=== PATIENT | female | born 1995 | race African-American/Black ===

== ENCOUNTER 2017-02-10 16:06 | Emergency (ER) | payer MEDICAID ==
[~2017-02-10] VITALS: Ht 167.6 cm; Wt 70.3 kg
[~2017-02-10 16:06] MED LIST: BENADRYL25 M3 PO; CLARITIN-D 241 EACH PO; IBUPROFEN600 MG ORAL
[2017-02-10] MEDS ORDERED: TYLENOL EXTRA500 MG ORAL (17:01)
--- NOTE | 2017-02-10 17:19 | Emergency Room Report ---
History of Present Illness General Chief Complaint: Lower Extremity Injury Source: Patient Present Illness HPI 21-year-old female presents ED complaining of left toe pain and swelling. States that she stubbed her toe yesterday while moving. Notes bruising and swelling to left small toe. Pain is a 9 of 10, throbbing, worse with weight- bearing. Denies any other injuries. No other aggravating or relieving factors. Denies any other associated symptoms Allergies: Coded Allergies: No Known Allergies (Unverified , 01/09/15) Patient History Past Medical History: none Past Surgical History: none Pertinent Family History: none Social History: Denies: alcohol use, drug use, smoking Last Menstrual Period: 1 month Now: No Immunizations: UTD Reviewed Nursing Documentation: PMH: Agreed, PSxH: Agreed Nursing Documentation-PMH Past Medical History: No Stated History Review of Systems All Other Systems: negative except mentioned in HPI Physical Exam Vital Signs Date Time Temp Pulse Resp B/P Pulse Ox O2 Delivery O2 Flow Rate FiO2 02/10/17 16:10 99.0 123 16 118/79 98 Room Air Sp02 EP Interpretation: reviewed, normal General Appearance: no apparent distress, alert, GCS 15, non-toxic Head: normocephalic Eyes: bilateral eye PERRL, bilateral eye normal inspection ENT: normal ENT inspection Neck: normal inspection Respiratory: normal inspection Cardiovascular #1: normal inspection Gastrointestinal: normal inspection Rectal: deferred Genitourinary: no CVA tenderness Musculoskeletal: tender - L small toe. bruising Neurologic: alert, oriented x3, responsive, motor strength/tone normal, sensory intact, speech normal Psychiatric: normal inspection Skin: normal inspection Lymphatic: normal inspection Medical Decision Making Diagnostic Impression: Primary Impression: Toe contusion Qualified Codes: S90.222A - Contusion of left lesser toe(s) with damage to nail, initial encounter ER Course Hospital Course 21-year-old F presents to ED complaining of L toe pain/bruising Differential diagnoses include: Fracture, dislocation, sprain, contusion Clinical course Patient placed on stretcher. After initial history and physical, I ordered pain medications and Xrays of L foot Xrays prelim read shows no acute fracture/dislocation. Discussed findings with the patient. Recommend ice, elevation, avoid tight fitting shoes Diagnosis - toe contusion Stable and discharged to home with prescription for Tylenol. apply ice, keep elevated. weight bear as tolerated. Followup with PMD. Return to ED if symptoms recur or worsen Other X-Ray Diagnostic Results Other X-Ray Diagnostic Results : X-Ray ordered: L foot # of Views/Limited Vs Complete: 3 View Indication: Pain EP Interpretation: Yes Interpretation: no dislocation, no soft tissue swelling, no fractures Impression: No acute disease Interpreting ER Provider: Electronically signed by Tucker Mcgarry MD Last Vital Signs Date Time Temp Pulse Resp B/P Pulse Ox O2 Delivery O2 Flow Rate FiO2 02/10/17 16:10 99.0 123 16 118/79 98 Room Air Status: improved Disposition: HOME, SELF-CARE Condition: Stable Scripts Acetaminophen* (TYLENOL EXTRA STRENGTH*) 500 Mg Tablet 500 MG ORAL Q8H Y for Prn Headache/Temp > 101, #30 TAB 0 Refills Prov: TUCKER MCGARRY M.D. 02/10/17 Patient Instructions: Foot Contusion TUCKER MCGARRY M.D. Feb 10, 2017 17:19
[2017-02-10 17:20] VITALS: BP 118/79
--- NOTE | 2017-02-11 11:50 | Diagnostic Imaging Report ---
Indication: Pain Comparison: None Findings: 3 views of the left foot were obtained. No acute fractures, malalignment, erosions or periostitis are identified. Bone mineralization is within normal limits. Soft tissues are unremarkable. Impression: No acute findings
== END 2017-02-10 17:24 | disposition home or self-care (01) ==
LOC: EMR 16:45
DX: S90.122A Contusion of left lesser toe(s) without damage to nail, initial encounter (principal); W22.8XXA Striking against or struck by other objects, initial encounter; Y92.89 Other specified places as the place of occurrence of the external cause
CPT/HCPCS: 99283

== ENCOUNTER 2017-07-15 01:36 | Emergency (ER) | payer MEDICAID ==
[~2017-07-15] VITALS: Ht 170.2 cm; Wt 67.1 kg
[~2017-07-15 01:36] MED LIST changes: +TYLENOL EXTRA500 MG ORAL
[2017-07-15 01:52] VITALS: BP 123/86
[2017-07-15] MEDS ORDERED: Norco 5mg/325mg tab ORAL ONE (02:00)
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
[2017-07-15] MEDS ORDERED: HYDROCODON-ACE1 EA15 ORAL (03:10)
[2017-07-15] MEDS ORDERED: IBUPROFEN600 MG ORAL (03:10)
[2017-07-15 03:16] VITALS: BP 120/82
[2017-07-15 03:19] VITALS: BP 120/82
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
== END 2017-07-15 03:19 | disposition home or self-care (01) ==
LOC: EMR 02:05
DX: S16.1XXA Strain of muscle, fascia and tendon at neck level, initial encounter (principal); S63.601A Unspecified sprain of right thumb, initial encounter; V43.52XA Car driver injured in collision with other type car in traffic accident, initial encounter; Y92.410 Unspecified street and highway as the place of occurrence of the external cause
CPT/HCPCS: 72040; 99284

== ENCOUNTER 2017-08-26 09:50 | Emergency (ER) | payer MEDICAID, OTHER ==
[~2017-08-26] VITALS: Ht 170.2 cm; Wt 68.0 kg
[~2017-08-26 09:50] MED LIST changes: +HYDROCODON-ACE1 EA15 ORAL
[2017-08-26] MEDS ORDERED: Ketorolac 30mg Inj IV ONE (10:15)
[2017-08-26 10:59] LABS: APPEARANCE,URINE CLEAR; BILIRUBIN, URINE NEGATIVE (NEGATIVE); GLUCOSE, URINE (UA) NEGATIVE (NEGATIVE); KETONES,URINE NEGATIVE (NEGATIVE); LEUKOCYTE ESTERASE ,URINE 2+ (NEGATIVE); NITRITE,URINE NEGATIVE (NEGATIVE); PH,URINE 6 (4.5-8.0); PROTEIN,URINE 1+ (NEGATIVE); UROBILINOGEN,URINE NORMAL MG/DL (0.0-1.0)
[2017-08-26 11:06] LABS: COLOR,URINE YELLOW
[2017-08-26 11:08] LABS: BASOPHILS % (AUTO) 0.6 % (0.0-2.0); EOSINOPHILS % (AUTO) 0.8 % (0.0-3.0); HEMOGLOBIN 13.2 G/DL (12.0-16.0); MEAN CORPUSCULAR VOLUME 97 FL (80-99); MONOCYTES % (AUTO) 11.2 % (1.0-10.0); NEUTROPHILS % (AUTO) 80.4 % (45.0-75.0); PLATELET COUNT 334 K/UL (150-450); RED BLOOD COUNT 4.12 M/UL (4.20-5.40); RED CELL DISTRIBUTION WIDTH 12.2 % (11.6-14.8); WHITE BLOOD COUNT 11.8 K/UL (4.8-10.8)
[2017-08-26 12:35] LABS: ANION GAP 10 mmol/L (5-15); BLOOD UREA NITROGEN 9 mg/dL (7-18); CALCIUM 9.1 MG/DL (8.5-10.1); CARBON DIOXIDE 26 MMOL/L (21-32); CHLORIDE 105 MMOL/L (98-107); CREATININE 0.9 MG/DL (0.55-1.30); POTASSIUM 4.1 MMOL/L (3.5-5.1); SODIUM 140 MMOL/L (136-145)
[2017-08-26 12:49] LABS: ALANINE AMINOTRANSFERASE 28 U/L (12-78); ALBUMIN 3.2 G/DL (3.4-5.0); ALBUMIN/GLOBULIN RATIO 0.6 (1.0-2.7); ALKALINE PHOSPHATASE 64 U/L (46-116); ASPARTATE AMINO TRANSFERASE 25 U/L (15-37); BILIRUBIN,TOTAL 0.2 MG/DL (0.2-1.0)
[2017-08-26 12:56] VITALS: BP 103/66
[2017-08-26] MEDS ORDERED: BACTRIM DS TAB1 EAC1 ORAL (13:58)
[2017-08-26] MEDS ORDERED: IBUPROFEN600 MG ORAL (13:58)
[2017-08-26] MEDS ORDERED: ACETAMINOPHEN-1 EAC1 ORAL (13:58)
--- NOTE | 2017-08-26 14:17 | Diagnostic Imaging Report ---
Indication:Lower abdominal and pelvic pain Technique: Grayscale and duplex Doppler imaging of the pelvis performed utilizing a transabdominal scan and endovaginal scan. Comparison: None Findings: 1.4 cm hypoechoic lesion noted within the left ovary probably hemorrhagic cyst. Some follicles demonstrated. There is good dopplerable blood flow within both ovaries. The uterus demonstrates multiple masses consistent with fibroids ranging in size between 1.5 and 2.5 cm.. Endometrium is 9 to 10 mm in thickness. The uterus measures 7 x 5 x 4 cm. Cervical nabothian cysts are noted. Left ovary 4.5 x 3.7 x 1.6 cm. Right ovary 4.2 x 3.1 x 2.5 cm. IMPRESSION: Multiple uterine fibroids 1.4 cm hemorrhagic cyst suspected in the left ovary. Follow-up recommended in 6 weeks.
--- NOTE | 2017-08-26 14:29 | Diagnostic Imaging Report ---
Indication: Abdominal pain Technique: Continuous helical transaxial imaging of the abdomen and pelvis was obtained from the lung bases to the pubic symphysis during intravenous contrast administration. Coronal 2-D reformats were also obtained. Study obtained in a Siemens sensation [address] Automatic Exposure Control was utilized. Total Dose length Product (DLP): 640.[address] Dose Index Volume (CTDIvol): 11.86 mGy Comparison: None Findings: The lung bases are clear. Solid organs are unremarkable. The gallbladder is unremarkable. There are mildly distended fluid-filled loops of small bowel diffusely throughout the abdomen without definite transition. The findings probably represent enteritis or ileus. Please correlate clinically. The appendix is partially visualized and as such appears normal. There is no abscess or free fluid. The bladder is unremarkable. Uterus noted. No adnexal mass seen. IMPRESSION: Suspected ileus/enteritis. Please correlate clinically. The CT scanner at [facility] is accredited by the [employer] and the scans are performed using dose optimization techniques as appropriate to a performed exam including Automatic Exposure control.
[2017-08-26 14:43] VITALS: BP 115/75
[2017-08-26] MEDS ORDERED: TRIAMCINOLONE A80 G1 TP (14:45)
--- NOTE | 2017-08-27 15:07 | Emergency Room Report ---
History of Present Illness General Chief Complaint: Abdominal Pain Source: Patient Present Illness HPI Patient reports that she was essentially active several days ago she took a day after pill as there was some questionable contact was semen Patient was having some lower abdominal cramping Denies any vomiting or diarrhea Denies any chest pressures of breath Denies any dysuria patient was warned about possible Denies any pelvic pain denies any vaginal discharge Denies any fevers or chills Allergies: Coded Allergies: No Known Allergies (Unverified , 01/09/15) Patient History Past Medical History: see triage record Pertinent Family History: none Last Menstrual Period: 08/17/17 Reviewed Nursing Documentation: PMH: Agreed, PSxH: Agreed Nursing Documentation-PMH Past Medical History: No Stated History Review of Systems All Other Systems: negative except mentioned in HPI Physical Exam Vital Signs Date Time Temp Pulse Resp B/P (MAP) Pulse Ox O2 Delivery O2 Flow Rate FiO2 08/26/17 09:56 97.9 96 22 113/82 99 Room Air Sp02 EP Interpretation: reviewed, normal General Appearance: well appearing, no apparent distress Head: normocephalic, atraumatic Eyes: bilateral eye PERRL, bilateral eye EOMI ENT: hearing grossly normal, normal pharynx, TMs + canals normal, uvula midline Neck: full range of motion, supple, no meningismus, no bony tend Respiratory: lungs clear, normal breath sounds, no rhonchi, no respiratory distress, no retraction, no accessory muscle use Cardiovascular #1: normal peripheral pulses, regular rate, rhythm, no edema, no gallop, no JVD, no murmur Gastrointestinal: normal bowel sounds, non tender, soft, no mass, no organomegaly, non-distended, no guarding, no hernia, no pulsatile mass, no rebound Genitourinary: no CVA tenderness Musculoskeletal: normal inspection Neurologic: oriented x3, responsive, ticket sales supervisor III-XII nml as tested, motor strength/ tone normal, sensory intact Psychiatric: mood/affect normal Skin: normal color, no rash, warm/dry, palpation normal Lymphatic: normal inspection, no adenopathy Medical Decision Making Diagnostic Impression: Primary Impression: abdominal pain Additional Impressions: ovarian cyst uterine fibroids ER Course With the patient's history and examination, multiple differentials considered, including but not limited to , ectopic , ovarian torsion, gastritis, cholecystitis, pancreatitis, appendicitis Patient's ultrasound shows likely hemorrhagic cyst test was negative Consideration for PID is low given the patient's lack of fever or vaginal discharge Patient also shows signs of uterine fibroids And understands the need for close gynecology followup mom is at bedside I did discuss this with her as well Labs Test 08/26/17 10:30 White Blood Count 11.8 K/UL (4.8-10.8) Red Blood Count 4.12 M/UL (4.20-5.40) Hemoglobin 13.2 G/DL (12.0-16.0) Hematocrit 40.0 % (37.0-47.0) Mean Corpuscular Volume 97 FL (80-99) Mean Corpuscular Hemoglobin 32.1 PG (27.0-31.0) Mean Corpuscular Hemoglobin Concent 33.1 G/DL (32.0-36.0) Red Cell Distribution Width 12.2 % (11.6-14.8) Platelet Count 334 K/UL (150-450) Mean Platelet Volume 7.1 FL (6.5-10.1) Neutrophils (%) (Auto) 80.4 % (45.0-75.0) Lymphocytes (%) (Auto) 7.0 % (20.0-45.0) Monocytes (%) (Auto) 11.2 % (1.0-10.0) Eosinophils (%) (Auto) 0.8 % (0.0-3.0) Basophils (%) (Auto) 0.6 % (0.0-2.0) Urine Color Yellow Urine Appearance Clear Urine pH 6 (4.5-8.0) Urine Specific [place] 1.020 (1.005-1.035) Urine Protein 1+ (NEGATIVE) Urine Glucose (UA) Negative (NEGATIVE) Urine Ketones Negative (NEGATIVE) Urine Occult Blood Negative (NEGATIVE) Urine Nitrite Negative (NEGATIVE) Urine Bilirubin Negative (NEGATIVE) Urine Urobilinogen Normal MG/DL (0.0-1.0) Urine Leukocyte Esterase 2+ (NEGATIVE) Urine RBC 0-2 /HPF (0 - 2) Urine WBC 15-20 /HPF (0 - 2) Urine Squamous Epithelial Cells Many /LPF (NONE/OCC) Urine Bacteria Few /HPF (NONE) Sodium Level 140 MMOL/L (136-145) Potassium Level 4.1 MMOL/L (3.5-5.1) Chloride Level 105 MMOL/L (98-107) Carbon Dioxide Level 26 MMOL/L (21-32) Anion Gap 10 mmol/L (5-15) Blood Urea Nitrogen 9 mg/dL (7-18) Creatinine 0.9 MG/DL (0.55-1.30) Estimat Glomerular Filtration Rate > 60 mL/min (>60) Glucose Level 85 MG/DL (74-106) Calcium Level 9.1 MG/DL (8.5-10.1) Total Bilirubin 0.2 MG/DL (0.2-1.0) Aspartate Amino Transf (AST/SGOT) 25 U/L (15-37) Alanine Aminotransferase (ALT/SGPT) 28 U/L (12-78) Alkaline Phosphatase 64 U/L (46-116) Total Protein 8.2 G/DL (6.4-8.2) Albumin 3.2 G/DL (3.4-5.0) Globulin 5.0 g/dL Albumin/Globulin Ratio 0.6 (1.0-2.7) Lipase 129 U/L (73-393) Human Chorionic Gonadotropin, Quant 1 mIU/mL (1-6) CT/MRI/US Diagnostic Results CT/MRI/US Diagnostic Results : Impression pelvic ultrasoundIMPRESSION: Multiple uterine fibroids 1.4 cm hemorrhagic cyst suspected in the left ovary. Follow-up recommended in 6 weeks. abdominal CTIMPRESSION: Suspected ileus/enteritis. Please correlate clinically. Last Vital Signs Date Time Temp Pulse Resp B/P (MAP) Pulse Ox O2 Delivery O2 Flow Rate FiO2 08/26/17 14:43 77 14 115/75 100 Room Air 08/26/17 09:56 97.9 Status: improved Disposition: HOME, SELF-CARE Condition: Improved Scripts Triamcinolone Acetonide (TRIAMCINOLONE ACETONIDE) 80 Gm Oint...g. 80 GM TP BID for 7 Days, GM Prov: CROW PACHECO D.O. 08/26/17 Acetaminophen With Codeine (T#3) (TYLENOL #3 TAB*) Y Tab 1 TAB ORAL Q8H Y for For Pain, #7 TAB Prov: CROW PACHECO D.O. 08/26/17 Trimethoprim/Sulfamethoxazole 160/800* (BACTRIM DS TABLET*) 1 Each Tablet 1 TAB ORAL Q12H, #14 TAB 0 Refills Prov: CROW PACHECO D.O. 08/26/17 Ibuprofen* (MOTRIN*) 600 Mg Tablet 600 MG ORAL Q8H Y for For Pain, #20 TAB 0 Refills Prov: CROW PACHECO D.O. 08/26/17 Referrals: [facility] (PCP) Patient Instructions: Uterine Fibroids, [id number], Ovarian Cyst, Easy-to- Read, Urinary Tract Infection, Cdoa-no-Glmg, Abdominal Pain, Adult Additional Instructions: Patient is provided with the discharge instructions notified to follow up with primary doctor in the next 2-3 days otherwise return to the er with any worsening symptoms. Please note that this report is being documented using [employer]ango technology. This can lead to erroneous entry secondary to incorrect interpretation by the dictating instrument. CROW PACHECO D.O. Aug 27, 2017 15:07
== END 2017-08-26 14:57 | disposition home or self-care (01) ==
LOC: EMR 10:58
DX: R10.9 Unspecified abdominal pain (principal); N83.202 Unspecified ovarian cyst, left side; D25.9 Leiomyoma of uterus, unspecified
CPT/HCPCS: 36415; 74177; 76856; 80053; 81003; 83690; 84702; 85025; 87086; 96374; 99284; J1885; Q9967

== ENCOUNTER 2017-08-31 21:51 | Emergency (ER) | payer OTHER ==
[~2017-08-31] VITALS: Ht 170.2 cm; Wt 68.0 kg
[~2017-08-31 21:51] MED LIST changes: +ACETAMINOPHEN-1 EAC1 ORAL; +BACTRIM DS TAB1 EAC1 ORAL; +TRIAMCINOLONE A80 G1 TP
[2017-08-31 22:11] VITALS: BP 109/69
[2017-08-31] MEDS ORDERED: Ketorolac 30mg Inj IV ONE (22:45)
[2017-08-31 23:06] LABS: BASOPHILS % (AUTO) 0.7 % (0.0-2.0); EOSINOPHILS % (AUTO) 2.7 % (0.0-3.0); HEMATOCRIT 39.4 % (37.0-47.0); HEMOGLOBIN 12.9 G/DL (12.0-16.0); LYMPHOCYTES % (AUTO) 17.8 % (20.0-45.0); MEAN CORPUSCULAR VOLUME 95 FL (80-99); MONOCYTES % (AUTO) 8.8 % (1.0-10.0); PLATELET COUNT 449 K/UL (150-450); RED BLOOD COUNT 4.15 M/UL (4.20-5.40); RED CELL DISTRIBUTION WIDTH 11.8 % (11.6-14.8); WHITE BLOOD COUNT 8.7 K/UL (4.8-10.8)
[2017-08-31 23:09] LABS: APPEARANCE,URINE CLEAR; BILIRUBIN, URINE NEGATIVE (NEGATIVE); GLUCOSE, URINE (UA) NEGATIVE (NEGATIVE); KETONES,URINE 1+ (NEGATIVE); LEUKOCYTE ESTERASE ,URINE 2+ (NEGATIVE); NITRITE,URINE NEGATIVE (NEGATIVE); PH,URINE 6.5 (4.5-8.0); PROTEIN,URINE 2+ (NEGATIVE); UROBILINOGEN,URINE 4 MG/DL (0.0-1.0)
[2017-08-31 23:12] LABS: COLOR,URINE YELLOW
[2017-08-31 23:17] LABS: ANION GAP 8 mmol/L (5-15); BLOOD UREA NITROGEN 11 mg/dL (7-18); CALCIUM 9.4 MG/DL (8.5-10.1); CARBON DIOXIDE 28 MMOL/L (21-32); CHLORIDE 102 MMOL/L (98-107); POTASSIUM 3.9 MMOL/L (3.5-5.1); SODIUM 138 MMOL/L (136-145)
[2017-08-31 23:21] LABS: ALANINE AMINOTRANSFERASE 31 U/L (12-78); ALBUMIN 3.1 G/DL (3.4-5.0); ALBUMIN/GLOBULIN RATIO 0.5 (1.0-2.7); ALKALINE PHOSPHATASE 58 U/L (46-116); ASPARTATE AMINO TRANSFERASE 39 U/L (15-37); BILIRUBIN,TOTAL 0.2 MG/DL (0.2-1.0)
[2017-09-01] MEDS ORDERED: Morphine Sulfate 4mg/ml Inj IVP ONE
[2017-09-01] MEDS ORDERED: cefTRIAXone 1 GM in NS 55 ML IVPB ONE ×2
[2017-09-01 00:11] VITALS: BP 111/62
[2017-09-01] MEDS ORDERED: ZOFRAN ODT4 MG ORAL (00:30)
[2017-09-01] MEDS ORDERED: AUGMENTIN 875-1 EAC1 ORAL (00:30)
[2017-09-01] MEDS ORDERED: HYDROCODON-ACE1 EA15 ORAL (00:30)
--- NOTE | 2017-09-01 00:30 | Emergency Room Report ---
History of Present Illness General Chief Complaint: Abdominal Pain Source: Patient, Family Member Present Illness HPI Is a 22-year-old female with no past medical history patient present with chief complaint abdominal pain with vomiting. Onset for about a month now. Was seen here a few days ago. Labs unremarkable. CT scan showed enteritis. Patient still with vomiting unable to tolerate the Tylenol with codeine and Cipro. No fever chills vomiting is on and off. Pain is upper quadrant area. No radiation. No longer having diarrhea. Family history of inflammatory bowel disease. Allergies: Coded Allergies: No Known Allergies (Unverified , 01/09/15) Patient History Past Medical History: see triage record, old chart reviewed Past Surgical History: none Pertinent Family History: none Social History: Denies: smoking Last Menstrual Period: aug 12 Now: No Immunizations: other Reviewed Nursing Documentation: PMH: Agreed, PSxH: Agreed Nursing Documentation-PMH Past Medical History: No Stated History Review of Systems Eye: Denies: eye pain, blurred vision ENT: Denies: ear pain, nose congestion, throat swelling Respiratory: Denies: cough, shortness of breath Cardiovascular: Denies: chest pain, palpitations Gastrointestinal: Reports: abdominal pain, nausea, vomiting, Denies: diarrhea Musculoskeletal: Denies: back pain, joint pain Skin: Denies: rash Neurological: Denies: headache, numbness Endocrine: Denies: increased thirst, increased urine Hematologic/Lymphatic: Denies: easy bruising All Other Systems: negative except mentioned in HPI Physical Exam Vital Signs Date Time Temp Pulse Resp B/P (MAP) Pulse Ox O2 Delivery O2 Flow Rate FiO2 08/31/17 22:06 98.2 86 18 109/69 98 08/31/17 22:11 Room Air vitals normal Sp02 EP Interpretation: reviewed, normal General Appearance: well appearing, no apparent distress, alert Head: normocephalic, atraumatic Eyes: bilateral eye PERRL, bilateral eye EOMI ENT: hearing grossly normal, normal pharynx Neck: full range of motion, supple, no meningismus Respiratory: chest non-tender, lungs clear, normal breath sounds Cardiovascular #1: regular rate, rhythm, no murmur Gastrointestinal: normal bowel sounds, non tender, no mass, no organomegaly, no bruit, non-distended Musculoskeletal: back normal, gait/station normal, normal range of motion Psychiatric: mood/affect normal Skin: warm/dry Medical Decision Making Diagnostic Impression: Primary Impression: Abdominal pain Qualified Codes: R10.10 - Upper abdominal pain, unspecified Additional Impressions: Vomiting Qualified Codes: R11.2 - Nausea with vomiting, unspecified Enteritis ER Course Patient with abdominal pain and CT scan show enteritis 2 days ago. Onset however been almost a month. Worse him for other inflammatory bowel disease. Patient is otherwise stable. No perforation. No acute abdomen. No obstruction. We'll discharge home. Lab Results Impression labs unremarkable Last Vital Signs Date Time Temp Pulse Resp B/P (MAP) Pulse Ox O2 Delivery O2 Flow Rate FiO2 08/31/17 22:11 98.2 86 18 109/69 98 Room Air Status: improved Disposition: HOME, SELF-CARE Condition: Stable Scripts Ondansetron Odt* (ZOFRAN ODT*) 4 Mg Tab.rapdis 4 MG ORAL Q6H Y for Nausea & Vomiting, #30 TAB 0 Refills Prov: JONY AGUILAR M.D. 09/01/17 Hydrocodone/Acetaminophen 5-325* (HYDROCODONE/ACETAMINOPHEN 5-325*) 1 Each Tablet 1 TAB ORAL Q6H Y for For Pain, #15 TAB 0 Refills Prov: JONY AGUILAR M.D. 09/01/17 Amoxicillin/Potassium Clav 875-125* (AUGMENTIN 875-125 TABLET*) 1 Each Tablet 1 TAB ORAL TWICE A DAY, #14 TAB Prov: JONY AGUILAR M.D. 09/01/17 Patient Instructions: Abdominal Pain, Adult Additional Instructions: Followup with your within a week. 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 Return if worse. JONY AGUILAR M.D. Sep 01, 2017 00:30
[2017-09-01] MEDS ORDERED: KENALOG 0.1% CR15 GM APPLIC (00:46)
[2017-09-01 00:50] VITALS: BP 115/66
== END 2017-09-01 00:50 | disposition home or self-care (01) ==
LOC: EMR 22:23
DX: K52.9 Noninfective gastroenteritis and colitis, unspecified (principal)
CPT/HCPCS: 36415; 80053; 81003; 83690; 85025; 85730; 96361; 96365; 96375; 99284; J0696; J1885; J2270; J2405

== ENCOUNTER 2018-01-09 19:17 | Emergency (ER) | payer MEDICAID, OTHER ==
[~2018-01-09] VITALS: Ht 170.2 cm; Wt 68.0 kg
[~2018-01-09 19:17] MED LIST changes: +AUGMENTIN 875-1 EAC1 ORAL; +KENALOG 0.1% CR15 GM APPLIC; +ZOFRAN ODT4 MG ORAL
[2018-01-09] MEDS ORDERED: NKM (19:31)
[2018-01-09 19:50] VITALS: BP 128/88
--- NOTE | 2018-01-09 19:56 | Emergency Room Report ---
History of Present Illness General Chief Complaint: Headache Source: Patient Present Illness HPI 22-year-old female presents emergency department complaining of 8 out of 10 in severity persistent headache that was progressive onset 3 days. Patient denies no diagnosed hx of migraines however she states she has had similar headaches in the past. Patient also reports some activity to light and loud noises. Reports nausea but denies vomiting. Denies recent head injury, recent illness denies fevers, chills, abdominal pain/tenderness, constipation or diarrhea. Patient states she had a UTI in July for which she took antibiotics and her symptoms resolved. Patient denies and states she had her menstrual cycle one week ago. She reports history of ovarian cysts. Denies sudden onset, neck pain or stiffness denies paresthesias or unilateral weaknesses. Denies dizziness or visual changes. Allergies: Coded Allergies: No Known Allergies (Unverified , 01/09/15) Patient History Past Medical History: see triage record Past Surgical History: none Pertinent Family History: none Last Menstrual Period: December Now: No Reviewed Nursing Documentation: PMH: Agreed; PSxH: Agreed Nursing Documentation-PMH Past Medical History: No Stated History Review of Systems All Other Systems: negative except mentioned in HPI Physical Exam Vital Signs Date Time Temp Pulse Resp B/P (MAP) Pulse Ox O2 Delivery O2 Flow Rate FiO2 01/09/18 19:26 98.7 81 16 134/91 99 Room Air 98.8 Sp02 EP Interpretation: reviewed, normal General Appearance: no apparent distress, alert, GCS 15, non-toxic Head: normocephalic, atraumatic Eyes: bilateral eye normal inspection, bilateral eye PERRL ENT: hearing grossly normal, normal voice Neck: full range of motion, no meningismus, no bony tend Respiratory: chest non-tender, lungs clear, normal breath sounds, speaking full sentences Cardiovascular #1: regular rate, rhythm Gastrointestinal: normal bowel sounds, non tender, soft Genitourinary: normal inspection, no CVA tenderness Musculoskeletal: back normal, gait/station normal, normal range of motion, non- tender Neurologic: alert, oriented x3, responsive, motor strength/tone normal, sensory intact, normal gait, speech normal, grossly normal Psychiatric: judgement/insight normal Skin: normal color, no rash, warm/dry, well hydrated Medical Decision Making PA Attestation Dr. Shaver is my supervising Physician whom patient management has been discussed with. Diagnostic Impression: Primary Impression: Headache Qualified Codes: R51 - Headache ER Course 22-year-old female presents emergency department complaining of 8 out of 10 in severity persistent headache that was progressive onset 3 days. Patient denies no diagnosed hx of migraines however she states she has had similar headaches in the past. Patient also reports some activity to light and loud noises. Reports nausea but denies vomiting. Denies recent head injury, recent illness denies fevers, chills, abdominal pain/tenderness, constipation or diarrhea. Patient states she had a UTI in July for which she took antibiotics and her symptoms resolved. Patient denies and states she had her menstrual cycle one week ago. She reports history of ovarian cysts. Denies sudden onset, neck pain or stiffness denies paresthesias or unilateral weaknesses. Denies dizziness or visual changes. Ddx considered but are not limited to migraine, SAH, Pseudomotor Cerebri,, Mass lesion, Cluster PINA, Tension PINA, Post lumbar puncture PINA. Vital signs: are WNL, pt. is afebrile H&PE are most consistent with migraine headache- No focal neurological deficits , neuronal logical exam is normal. no meningismus ORDERS: - none required at this time, dx is clinical. ED INTERVENTIONS: - Compazine PO -IM Toradol - Re-assessment: Pt. reports moderate improvement in her symptoms. She states that her symptoms are almost completely resolved after ED interventions. I discussed w. the patient that she needs to follow-up with primary care and preferably obtain Neurology referral for definitive diagnosis of type of headaches. I Gave patient strict ED return precautions, and encouraged her to return with worsening or new symptoms. DISCHARGE: At this time pt. is stable for d/c to home. Will provide printed patient care instructions, and any necessary prescriptions. Care plan and follow up instructions have been discussed with the patient prior to discharge. Labs Test 01/09/18 19:40 Urine Color Yellow Urine Appearance Clear Urine pH 6 (4.5-8.0) Urine Specific [place] 1.020 (1.005-1.035) Urine Protein Negative (NEGATIVE) Urine Glucose (UA) Negative (NEGATIVE) Urine Ketones 1+ (NEGATIVE) Urine Occult Blood Negative (NEGATIVE) Urine Nitrite Negative (NEGATIVE) Urine Bilirubin Negative (NEGATIVE) Urine Urobilinogen 1 MG/DL (0.0-1.0) Urine Leukocyte Esterase 1+ (NEGATIVE) Urine RBC 0-2 /HPF (0 - 2) Urine WBC 2-4 /HPF (0 - 2) Urine Squamous Epithelial Cells Few /LPF (NONE/OCC) Urine Bacteria Few /HPF (NONE) Urine HCG, Qualitative Negative (NEGATIVE) Last Vital Signs Date Time Temp Pulse Resp B/P (MAP) Pulse Ox O2 Delivery O2 Flow Rate FiO2 01/09/18 19:26 98.7 81 16 134/91 99 Room Air 98.8 Disposition: HOME, SELF-CARE Condition: Stable Patient Instructions: General Headache Without Cause, Migraine Headache Additional Instructions: Take medications as directed. Follow up with a Primary Care Provider in 3-5 days for Neurology Referral/ evaluation, even if your symptoms have resolved. --Please review list of primary care clinics, if you do not already have a primary care provider Return sooner to ED if new symptoms occur, or current symptoms become worse. - Please note that this Emergency Department Report was dictated using [employer]lock[employer] technology software, occasionally this can lead to erroneous entry secondary to interpretation by the dictation equipment. Alison Rollins Jan 09, 2018 19:56
[2018-01-09 20:00] LABS: APPEARANCE,URINE CLEAR; BILIRUBIN, URINE NEGATIVE (NEGATIVE); GLUCOSE, URINE (UA) NEGATIVE (NEGATIVE); KETONES,URINE 1+ (NEGATIVE); LEUKOCYTE ESTERASE ,URINE 1+ (NEGATIVE); NITRITE,URINE NEGATIVE (NEGATIVE); PH,URINE 6 (4.5-8.0); PROTEIN,URINE NEGATIVE (NEGATIVE); UROBILINOGEN,URINE 1 MG/DL (0.0-1.0)
[2018-01-09] MEDS ORDERED: Ketorolac 60mg Inj IM ONE (20:00)
[2018-01-09] MEDS ORDERED: Prochlorperazine 10mg tab ORAL PRN (20:00)
[2018-01-09 20:02] LABS: COLOR,URINE YELLOW
[2018-01-09] MEDS ORDERED: EXCEDRIN MIGRA1 EACH PO (21:01)
[2018-01-09] MEDS ORDERED: COMPAZINE10 MG ORAL (21:01)
[2018-01-09 21:50] VITALS: BP 123/83
[2018-01-09 22:00] VITALS: BP 123/83
== END 2018-01-09 22:00 | disposition home or self-care (01) ==
LOC: EMR 19:58
DX: R51 Headache (principal)
CPT/HCPCS: 81003; 81025; 96372; 99283

== ENCOUNTER 2018-06-19 14:31 | Emergency (ER) | payer MEDICAID ==
[~2018-06-19] VITALS: Ht 170.2 cm; Wt 68.0 kg
[~2018-06-19 14:31] MED LIST changes: +COMPAZINE10 MG ORAL; +EXCEDRIN MIGRA1 EACH PO; +NKM
[2018-06-19 14:45] VITALS: BP 118/81
--- NOTE | 2018-06-19 14:59 | Emergency Room Report ---
History of Present Illness General Chief Complaint: Skin Rash/Abscess Source: Patient Present Illness HPI 22-year-old female presents to the emergency department complaining of eczema flare to bilateral hands 1 week. 8/10 in severity itching and burning to site of rash. Patient reports she ran out of her topical medication and is currently changing insurances and requires a refill. No aggravating or relieving factors. Patient states her symptoms are consistent with symptoms that she experienced in the past with previous eczema flares. Pt. denies fevers , chills or swollen tender lymph nodes. Denies lesions/rashes elsewhere on the body. Denies new medications or body washes or creams. Denies swelling of the lips, tongue , throat or airway. Denies wheezing, or shortness of breath. Denies recent travel, recent illness or ill contacts. denies blisters, oral lesions, or sloughing of the skin Allergies: Coded Allergies: No Known Allergies (Unverified , 01/09/15) Patient History Past Medical History: see triage record Past Surgical History: none Pertinent Family History: none Last Menstrual Period: Three weeks ago Now: No Immunizations: UTD Reviewed Nursing Documentation: PMH: Agreed; PSxH: Agreed Nursing Documentation-PMH Past Medical History: No Stated History Review of Systems All Other Systems: negative except mentioned in HPI Physical Exam Vital Signs Date Time Temp Pulse Resp B/P (MAP) Pulse Ox O2 Delivery O2 Flow Rate FiO2 06/19/18 14:43 99.0 84 16 118/81 99 Room Air Sp02 EP Interpretation: reviewed, normal General Appearance: no apparent distress, alert, GCS 15, non-toxic Head: normocephalic, atraumatic Eyes: bilateral eye normal inspection, bilateral eye PERRL ENT: hearing grossly normal, no angioedema, normal voice, other - no stridor Neck: full range of motion, supple/symm/no masses Respiratory: lungs clear, normal breath sounds, no respiratory distress, no accessory muscle use, no wheezing, speaking full sentences Cardiovascular #1: regular rate, rhythm, no edema Musculoskeletal: back normal, gait/station normal, normal range of motion, non- tender Neurologic: alert, oriented x3, responsive, motor strength/tone normal, sensory intact, speech normal, grossly normal Psychiatric: judgement/insight normal Skin: normal color, no rash, warm/dry, well hydrated, rash - eczema flare to bilateral hands, no blisters, vesicles, crusting, d/c , erythema or warmth noted. Medical Decision Making PA Attestation Dr. draper is my supervising Physician whom patient management has been discussed with. Diagnostic Impression: Primary Impression: Eczema Qualified Codes: L30.9 - Dermatitis, unspecified ER Course 22-year-old female presents to the emergency department complaining of eczema flare to bilateral hands 1 week. 8/10 in severity itching and burning to site of rash. Patient reports she ran out of her topical medication and is currently changing insurances and requires a refill. No aggravating or relieving factors. Patient states her symptoms are consistent with symptoms that she experienced in the past with previous eczema flares. Pt. denies fevers , chills or swollen tender lymph nodes. Denies lesions/rashes elsewhere on the body. Denies new medications or body washes or creams. Denies swelling of the lips, tongue , throat or airway. Denies wheezing, or shortness of breath. Denies recent travel, recent illness or ill contacts. denies blisters, oral lesions, or sloughing of the skin. Ddx considered but are not limited to cellulitis, scabies, shingles, varicella, dermatitis, urticaria, eczema, tinea, viral exanthem, SJS Vital signs: are WNL, pt. is afebrile H&PE are most consistent with eczema flare to bilateral hands, no blisters, vesicles, crusting, d/c , erythema or warmth noted. ORDERS: none required at this time, the diagnosis is clinical ED INTERVENTIONS: None required at this time. DISCHARGE: At this time pt. is stable for d/c to home. Will provide printed patient care instructions, and any necessary prescriptions. Care plan and follow up instructions have been discussed with the patient prior to discharge. Last Vital Signs Date Time Temp Pulse Resp B/P (MAP) Pulse Ox O2 Delivery O2 Flow Rate FiO2 06/19/18 14:43 99.0 84 16 118/81 99 Room Air Disposition: HOME, SELF-CARE Condition: Stable Scripts Fluocinonide (FLUOCINONIDE) 15 Gm Cream..g. 1 APPLIC TP BID, #30 GM Prov: Alison Rollins 06/19/18 Patient Instructions: Eczema Additional Instructions: Take medications as directed. Follow up with a Primary Care Provider in 3-5 days for DERMATOLOGY REFERRAL , even if your symptoms have resolved. --Please review list of primary care clinics, if you do not already have a primary care provider Return sooner to ED if new symptoms occur, or current symptoms become worse. - Please note that this Emergency Department Report was dictated using [employer] sawyer technology software, occasionally this can lead to erroneous entry secondary to interpretation by the dictation equipment. Alison Rollins Jun 19, 2018 14:59
[2018-06-19] MEDS ORDERED: FLUOCINONIDE15 GM TP (15:01)
[2018-06-19 15:22] VITALS: BP 118/81
== END 2018-06-19 15:08 | disposition home or self-care (01) ==
LOC: EMR 14:59
DX: L30.9 Dermatitis, unspecified (principal)
CPT/HCPCS: 99283

== ENCOUNTER 2019-05-25 11:39 | Emergency (ER) | payer MEDICAID ==
[~2019-05-25] VITALS: Ht 170.2 cm; Wt 63.5 kg
[~2019-05-25 11:39] MED LIST changes: +FLUOCINONIDE15 GM TP
[2019-05-25 11:55] VITALS: BP 125/88
--- NOTE | 2019-05-25 11:57 | NUR ---
ED Nurse Note: pt walked in to ED for eval. pt felt something crawling inside of right ear since this morning. pt denies any pain or discharge. no hearing loss. AAO x4. respirations even and non-labored noted. will wait for the further order.
[2019-05-25] MEDS ORDERED: Lidocaine 1% 10mg/ml/EPI 0.01mg/ml 20ml INJ ONE (12:15)
[2019-05-25] MEDS ORDERED: CORTISPORIN EAR10 ML OTIC (12:52)
[2019-05-25 12:58] VITALS: BP 120/87
--- NOTE | 2019-05-25 12:59 | NUR ---
ER DISCHARGE NOTE: Patient is cleared to be discharged per ERMD, pt is aox4, on room air, with stable vital signs. pt was given dc and prescription instructions, pt was able to verbalize understanding, pt id band removed without complications. pt is able to ambulate with steady gait. pt took all belongings.
--- NOTE | 2019-05-25 13:02 | Emergency Room Report ---
History of Present Illness General Chief Complaint: Earache Source: Patient Present Illness HPI Patient presents with complaints of discomfort to the right ear reports that upon awaking recently she has felt something moving And presents to the ER denies any headache denies any visual changes denies any fevers denies any change in hearing She feels that there is likely something in there Allergies: Coded Allergies: No Known Allergies (Unverified , 01/09/15) Patient History Past Medical History: see triage record Reviewed Nursing Documentation: PMH: Agreed; PSxH: Agreed Nursing Documentation-PMH Past Medical History: No Stated History Review of Systems All Other Systems: negative except mentioned in HPI Physical Exam Vital Signs Date Time Temp Pulse Resp B/P (MAP) Pulse Ox O2 Delivery O2 Flow Rate FiO2 05/25/19 11:44 98.2 78 19 125/88 (100) 100 Room Air Sp02 EP Interpretation: reviewed, normal General Appearance: well appearing, no apparent distress Head: normocephalic, atraumatic Eyes: bilateral eye PERRL, bilateral eye EOMI ENT: hearing grossly normal, other - Evaluation of the right ear reveals what appears to be likely silver fish fairly small just adjacent to the tympanic membrane Neck: supple Respiratory: lungs clear, no respiratory distress Cardiovascular #1: regular rate, rhythm Gastrointestinal: non tender, soft Musculoskeletal: normal inspection Neurologic: alert, oriented x3, responsive Skin: no rash Lymphatic: no adenopathy Medical Decision Making Diagnostic Impression: Primary Impression: foreign body ER Course Given the exam and findings the area was flushed with lidocaine There was increased movement of the insect On reevaluation it does appear that it is not moving any longer Several attempts were made to flush the ear along with the removal with different instruments however it is unsuccessful Patient will have ointments applied 3-4 times per day And will have close outpatient follow-up Last Vital Signs Date Time Temp Pulse Resp B/P (MAP) Pulse Ox O2 Delivery O2 Flow Rate FiO2 05/25/19 11:55 98.2 78 19 125/88 100 Room Air Status: improved Disposition: HOME, SELF-CARE Condition: Stable Scripts Neomycin/Polymyxin B Sulf/Hc* (CORTISPORIN EAR SOLUTION*) 10 Ml Solution 2 DROP OTIC FOUR TIMES A DAY for 7 Days, #1 EA Instill in affected ear as directed for 7 days Prov: Bola Shaver DO 05/25/19 Referrals: [facility],REFERRING (PCP) Umair Prater MD [facility] Essence Pfeiffer. [facility] Patient Instructions: Ear Foreign Body, [id number] Additional Instructions: unfortunately, the foreign body was not able to be fully removed. We will have conservative outpatient attempt. Please apply the drops as prescribed. Patient is provided with the discharge instructions notified to follow up with primary doctor in the next 2-3 days otherwise return to the er with any worsening symptoms. Please note that this report is being documented using [employer] technology. This can lead to erroneous entry secondary to incorrect interpretation by the dictating instrument. Bola Shaver DO May 25, 2019 13:02
== END 2019-05-25 13:00 | disposition home or self-care (01) ==
LOC: EMR 12:04
DX: T16.1XXA Foreign body in right ear, initial encounter (principal); X58.XXXA Exposure to other specified factors, initial encounter; Y92.9 Unspecified place or not applicable
CPT/HCPCS: 99282